=== PATIENT | female | born 1930 | race Caucasian/White ===

== ENCOUNTER → 2016-07-12 | Outpatient (CLI) | payer OTHER ==
[~2016-07-12] MED LIST: ANTIVERT/2525 MG PO; ASPIRIN81 M1 PO; ATENOLOL25 MG PO; CIPROFLOXACIN500 MG PO; CLARITIN10 MG PO; COQ1030 MG PO; DILTIAZEM180 MG PO; METFORMIN500 MG PO; MOTRIN400 MG PO; PRAVACHOL20 MG PO; PYRIDIUM200 MG PO; VITAMIN C500 M4 PO
--- NOTE | ~2016-07-12 | EKG ---
[place], [place] ELECTROCARDIOGRAM REPORT NAME: ASHKAN RODRIGUEZ UNIT #: [id number] ROOM: DOCTOR: TERESA HUBBARD MD BIRTHDATE: [birth year] DOS: 07/12/2016 TIME: 11:39 a.m. Sinus bradycardia at rate of 59. Low voltage in limb leads. Nonspecific T-wave flattening, abnormal electrocardiogram. TERESA HUBBARD MD CM:EKGRPT:ELECTROCARDIOGRAM REPORT [id number] TERESA HUBBARD MD
[2016-07-12 12:03] LABS: BASO % 0.6 % (0.0-1.0); EOS # 0.1 10*3/uL (0.0-0.4); EOS % 1.5 % (1.0-4.0); HEMATOCRIT 41.2 % (37.0-47.0); HEMOGLOBIN 13.7 g/dl (12.0-16.0); LYMPH # 1.6 10*3/uL (1.3-4.4); LYMPH % 22.8 % (27.0-41.0); MEAN CELL VOLUME 86.6 fl (81.0-99.0); MEAN CORPUSCULAR HGB 28.8 pg (27.0-31.0); MEAN CORPUSCULAR HGB CONC 33.3 g/dl (33.0-37.0); MEAN PLATELET VOLUME 11.8 fl (9.6-12.3); MONO # 0.5 10*3/uL (0.1-1.0); MONO % 7.1 % (3.0-9.0); NEUT # 4.8 10*3/uL (2.3-7.9); NEUT % 67.7 % (47.0-73.0); PLATELET COUNT AUTOMATED 211 10*3/uL (130-400); RED BLOOD COUNT 4.76 10*6/uL (4.10-5.10); RED CELL DISTRI WIDTH 12.7 % (0-14.5); WHITE BLOOD COUNT 7.2 10*3/uL (4.8-10.8)
[2016-07-12 12:18] LABS: HEMOGLOBIN A1c 6.5 % (4.8-5.6)
[2016-07-12 12:30] LABS: ALBUMIN 3.8 gm/dl (3.1-4.5); ALKALINE PHOSPHATASE 102 U/L (45-117); BILIRUBIN, DIRECT 0.2 mg/dL (0.0-0.2); BILIRUBIN, TOTAL 0.8 mg/dl (0.2-1.0); BUN 16 mg/dl (7-24); CARBON DIOXIDE 28 mmol/L (21-32); CHLORIDE 106 mmol/L (98-107); CHOLESTEROL 169 mg/dL (<200); EST GLOM FILT AFRICAN AMERICAN > 60 ml/min; GLUCOSE 120 mg/dL (65-99); HDL CHOLESTEROL 45 mg/dl (40-60); LDL CHOLESTEROL 89 mg/dL (9-159); MAGNESIUM 2.1 mg/dL (1.5-2.1); PHOSPHOROUS 3.3 mg/dL (2.5-4.9); POTASSIUM 3.8 mmol/L (3.5-5.1); SGOT/AST 16 IU/L (3-35); SGPT/ALT 20 U/L (12-78); SODIUM 139 mmol/L (136-145); TOTAL PROTEIN 6.8 gm/dL (6.4-8.2); TRIGLYCERIDES 173 mg/dl (<150); VLDL CHOLESTEROL 35 mg/dL (6-40)
[2016-07-12 13:10] LABS: FOLIC ACID > 24.00 ng/mL (>5.38)
== END | disposition home or self-care (01) ==
LOC: LAB 10:08
PROVIDERS: Internal Medicine
DX: E11.9 Type 2 diabetes mellitus without complications (principal); I10 Essential (primary) hypertension; N81.3 Complete uterovaginal prolapse; R73.01 Impaired fasting glucose; E78.2 Mixed hyperlipidemia

== ENCOUNTER 2016-07-18 03:39 | Inpatient (IN) | payer OTHER ==
[2016-07-13 11:00] VITALS: BP 110/51
[~2016-07-18] VITALS: Ht 152.4 cm; Wt 89.0 kg
[2016-07-18] VITALS (11 sets, daily range): BP systolic 110–154; BP diastolic 51–76
--- NOTE | ~2016-07-18 | WRIGHTHP ---
[place], [place] PATIENT HISTORY AND PHYSICAL EXAM NAME: ASHKAN RODRIGUEZ [facility] #: [id number] UNIT #: [id number] ROOM: DOCTOR: SWEETIE NAZARIO MD BIRTHDATE: [birth year] DOS: 07/18/2016 DATE OF PLANNED SURGERY: 07/18/2016. HISTORY OF PRESENT ILLNESS: This is an 86-year-old white female 4, para 4 who had been seen in December 2015 by me for the same complaints as above, prolapse bladder having pressure causing urinary retention. At that time, the patient's exam indicated generalized vaginal laxity and first to second degree uterine prolapse. The patient presented on 07/06/2016 stating that her uterus had come clear out per vaginal introitus. She was also having some urinary retention not surprisingly. She has seen Dr. Eddy, her primary care physician, who had referred her to Dr. Pérez who had fitted her with a pessary, but the pessary came out on several and patient wanted no further pessary attempts and wanted the situation fixed. Her exam on 07/06/2016 reveal complete uterovaginal prolapse with associated generalized vaginal laxity. We discussed the risks and benefits, the indications, the potential complications, and the alternatives of a TVH A and P repair, uterosacral plication, right sacrospinous fixation and perineoplasty. Understanding was stated and consent was signed and surgery is scheduled for 07/18/2016. PAST MEDICAL HISTORY: Reveals 4 pregnancies and 4 vaginal deliveries. She has had cataract removal. SOCIAL HISTORY: She does not smoke or drink. MEDICATIONS: She does take several medications including metformin 500 mg at dinner for diabetes, pravastatin 1 tablet daily for elevated cholesterol, atenolol 1 tablet daily for hypertension, diltiazem 180 mg for blood pressure elevation, Claritin p.r.n. for allergies and finally CoQ10 one tablet daily for blood sugar. She also takes a vitamin C and baby aspirin daily. REVIEW OF SYSTEMS: Other than what I mentioned is stable. She did have a blood clot from trauma in her left leg 5 years ago in 2009 with no sequelae and that is the reason she is taking a baby aspirin daily. The patient's family history really is noncontributory to the present situation. Both parents are and a sister who had breast cancer. PHYSICAL EXAMINATION: GENERAL: Reveals a pleasant white female in no significant distress. She is 5 feet, 4 inches, 177 pounds, BMI is 30.4. VITAL SIGNS: Blood pressure 132/66 and her oxygen saturation on room air is 99%. HEENT: Stable. NECK: Stable. CARDIAC: Stable. BREASTS: Stable. ABDOMEN: Normal. EXTREMITIES: Grossly intact. NEUROLOGIC: Grossly intact. [place], [place] PATIENT HISTORY AND PHYSICAL EXAM [facility]: [id number] UNIT #: [id number] ROOM: DOCTOR: SWEETIE NAZARIO MD BIRTHDATE: [birth year] GENITOURINARY: The external genitalia are normal, but she has significant introital laxity and again when the patient moved down the table for exam, the uterus prolapse clear out to the introitus. GENITOURINARY: The uterus, cervix and vaginal with the exception of the generalized laxity and the prolapse were otherwise normal. Bimanual exam was normal as well. RECTAL: Normal and stool Hematest is negative. ASSESSMENT: The patient with complete uterovaginal prolapse, urinary retention and failed pessary efforts at trying to keep the organs retained in a patient who now is going to be undergoing TVH A and P repair, uterosacral plication, right sacrospinous fixation and perineoplasty on 07/18/2016. I reviewed this information not only with the patient, but also with her son and I contacted her granddaughter who is a medical student here at [facility] to review all this information with understanding stated. We will certainly use early ambulation, SCD stockings, etc., but I am not going to utilized anticoagulation therapy because of the significant potential for bleeding in the operative sites within the pelvis as a result of this surgery. SWEETIE NAZARIO MD CM:HISPHYS:PATIENT HISTORY AND PHYSICAL EXAMINATION [id number] SWEETIE NAZARIO MD 07/12/16 1550 interface
--- NOTE | ~2016-07-18 | O ---
[place], [place] OPERATIVE NOTE NAME: [id number] UNIT #: [id number] ROOM: 425 DOCTOR: SWEETIE NAZARIO MD BIRTHDATE: [birth year] DOS: 07/18/2016 PREOPERATIVE DIAGNOSES: 1. Complete uterovaginal prolapse and urinary retention. 2. Significant introital laxity. POSTOPERATIVE DIAGNOSES: 1. Complete uterovaginal prolapse and urinary retention. 2. Significant introital laxity. PROCEDURE: TVH, A and P repair, uterosacral plication, right sacrospinous fixation and perineoplasty. SURGEON: Dr. Sweetie Billingsley. ANESTHESIA: General. ESTIMATED BLOOD LOSS: 100 mL. REPLACEMENTS: IV fluids, Toradol, and Ancef. COMPLICATIONS: There were no complications to the case. CONDITION: The patient's condition to recovery stable. OPERATIVE SUMMARY: The patient was taken to the operating room in supine position, general anesthesia, endotracheal intubation, lithotomy position, prepped and draped in routine manner. Catalan catheter was placed. The bladder was drained and we then were able to grasp the cervix. The uterus and cervix both of which were outside of the vagina. We injected the cervix in a circumferential manner with 1% lidocaine with epinephrine. Then, made a circumferential incision. We were careful to displace the bladder anteriorly and the rectum posteriorly. We entered the posterior cul-de-sac, created uterosacral and cardinal ligament, pedicles ligated using 0 Vicryl in transfixing manner followed by taking several pedicles with the LigaSure device prior to entering the anterior cul-de-sac. Once that was completed, we had successive pedicles bilaterally freeing up the uterus and cervix completely. The adnexa were not visualized and really not even palpable. Noting good hemostasis and stable sponge and instrument count, we plicated the uterosacral ligaments with several interrupted 2-0 Ethibond sutures. We then reperitonealized the peritoneal layer in a pursestring manner. We then excised portion of the posterior vaginal cuff followed by closure of the entire vaginal cuff with a series of interrupted 0 Vicryl [id number] sutures. We then made an incision perpendicular to the vaginal cuff up to a point just inferior to the urethral meatus and dissected the bladder and the vesicovaginal fascia free from the anterior vaginal mucosa. With several layers of 2-0 Vicryl suture, we supported the urethrovesical neck and we supported the body of the bladder, followed by removal of excess vaginal mucosa and then closure of the anterior incision with a running locking 2-0 Vicryl suture. We then made a small triangular shaped incision over the perineal area as there was not a lot [place], [place] OPERATIVE NOTE NAME: ASHKAN RODRIGUEZ UNIT #: [id number] ROOM: 425 DOCTOR: SWEETIE NAZARIO MD BIRTHDATE: [birth year] of distance between the fourchette area and the rectum. Once the skin was removed, we made an incision perpendicular to this up to the vaginal cuff posteriorly. The rectum and the rectovaginal tissue/fascia were dissected free from the vaginal mucosa. We then dissected over to the right ischial spines and placed an Ethibond suture proximal to the spine in the uterosacral ligament and affixed this to the top of the vagina bilaterally. Once that was completed, we then obliterated the rectocele with 2 layers of interrupted 2-0 Vicryl suture. We excised excess posterior vaginal mucosa and then we closed the vaginal incision from superior down toward the introitus with a running locking 2-0 Vicryl suture. We then using a charlie tight method elevated the top of the vagina very nicely with the sacrospinous fixation suture. Once that was completed, we completed the vaginal closure with a 2-0 Vicryl suture and then we reapproximated the perineal defect in 2 layers with 2-0 Vicryl as one would close a very small superficial midline episiotomy. Once that was completed, we evaluated the vagina for hemostasis. Having noted good hemostasis within all operative sites within the vagina and good elevation of the vagina itself, we then placed Premarin vaginal cream and placed iodoform packing. Once this was completed, we examined the rectum, noted to be intact, and there sacrospinous fixation suture intact as well. We then cleaned the patient off, took her out of lithotomy position, awakened, extubated her, and transferred her to recovery in satisfactory condition with stable vital signs, good hemostasis, stable sponge and instrument count, and an excellent urine output. SWEETIE NAZARIO MD CM:OPRECORD:OPERATIVE NOTE [id number] SWEETIE NAZARIO MD 07/18/16 1042 interface
--- NOTE | ~2016-07-18 | DS ---
[place], [place] DISCHARGE SUMMARY NAME: ASHKAN RODRIGUEZ [facility] #: [id number] UNIT #: [id number] ROOM: 425 DOCTOR: SWEETIE NAZARIO MD BIRTHDATE: [birth year] DOS: 07/19/2016 HOSPITAL COURSE: This absolutely delightful 86-year-old white female who was admitted on 07/18/2016 with complete uterine prolapse and associated generalized laxity, who underwent a TVH, A and P repair, uterosacral plication, right sacrospinous fixation and perineoplasty on 07/18/2016. EBL was well less than 100 mL. Postoperatively, the patient has done extremely well with good ambulation, toleration of regular diet, having resumption of bodily functions. She has had her packing and catheter removed. She has had minimal vaginal bleeding after removal of the packing. Her physical exam reveals stable vital signs, cardiac and pulmonary exam stable. Abdomen soft with good bowel sounds. Extremities and neurologic exam are all intact. IV site is stable and as I said, there is scant amount of vaginal discharge/bleeding following the packing removal. I reviewed the operative procedures with the patient and in fact, her granddaughter who is a medical student here at [employer] observed the surgery and has been able to reinforce the procedures that we had performed as we discussed during the surgery and she was able as I said to actually watch the case. I also reviewed the discharge instructions in detail. The patient will increase her diet and activity as tolerated. She will contact us should she have any complications as outlined in the discharge instructions. She will follow up in 6 weeks. She was given Percocet 5/325 one p.o. q.4-6h. on a p.r.n. basis #15, but she will mix this with a p.r.n. anti-inflammatories or Tylenol. As I said, the patient will contact the office for a 6-week followup and should she have any other issues as outlined in her discharge instructions. This delightful woman was discharged on 07/19/2016. As I said to follow up in 6 weeks. SWEETIE NAZARIO MD CM:DISCHANGELICA [id number] SWEETIE NAZARIO MD 07/19/16 1229 interface
[2016-07-18] MEDS ORDERED: CIPROFLOXACIN500 M4 PO (06:53)
[2016-07-19] VITALS: BP 147/71
[2016-07-19 08:00] VITALS: BP 166/72
== END 2016-07-19 10:15 | disposition home or self-care (01) | DRG 743 ==
LOC: SDC 03:39 → 4E 08:28 → SDC 10:15 → 4E 07-19 10:15
PROC: 0JQC0ZZ Repair Pelvic Region Subcutaneous Tissue and Fascia, Open Approach (ICD-10-PCS; principal; 2016-07-18)
PROC: 0UT97ZZ Resection of Uterus, Via Natural or Artificial Opening (ICD-10-PCS; principal; 2016-07-18)
PROC: 0UTC7ZZ Resection of Cervix, Via Natural or Artificial Opening (ICD-10-PCS; principal; 2016-07-18)
PROC: 0WQN0ZZ Repair Female Perineum, Open Approach (ICD-10-PCS; principal; 2016-07-18)
PROC: 0USG0ZZ Reposition Vagina, Open Approach (ICD-10-PCS; principal; 2016-07-18)
PROC: 0US90ZZ Reposition Uterus, Open Approach (ICD-10-PCS; principal; 2016-07-18)
DX: N81.3 Complete uterovaginal prolapse (principal); D25.9 Leiomyoma of uterus, unspecified; R33.9 Retention of urine, unspecified; N72 Inflammatory disease of cervix uteri

== ENCOUNTER → 2016-10-12 | Outpatient (CLI) | payer OTHER ==
[~2016-10-12] MED LIST changes: +CIPROFLOXACIN500 M4 PO
== END | disposition home or self-care (01) ==
LOC: US 02:49
DX: N39.3 Stress incontinence (female) (male) (principal)

== ENCOUNTER → 2017-05-10 | Outpatient (CLI) | payer OTHER ==
[2017-05-10 09:06] LABS: BILIRUBIN NEGATIVE (NEGATIVE); BLOOD TRACE-LYSED (NEGATIVE); CLARITY CLEAR (CLEAR); COLOR YELLOW (YELLOW); GLUCOSE NEGATIVE (NEGATIVE); KETONE TRACE (NEGATIVE); LEUKO ESTERASE NEGATIVE (NEGATIVE); NITRITE NEGATIVE (NEGATIVE); SPECIFIC GRAVITY 1.015 (1.005-1.030); UROBILINOGEN 0.2 E.U./dl (0.2-1.0)
[2017-05-10 10:18] LABS: BACTERIA 1+; MUCOUS 1+
== END | disposition home or self-care (01) ==
LOC: LAB 08:50
PROVIDERS: Internal Medicine
DX: N39.0 Urinary tract infection, site not specified (principal)

== ENCOUNTER 2017-07-03 11:00 | Emergency (ER) | payer OTHER ==
[~2017-07-03] VITALS: Ht 162.5 cm; Wt 77.1 kg
[2017-07-03 11:26] LABS: BASO # 0.1 10*3/uL (0.0-0.1); BASO % 0.6 % (0.0-1.0); EOS # 0.1 10*3/uL (0.0-0.4); EOS % 1.7 % (1.0-4.0); HEMOGLOBIN 13.7 g/dl (12.0-16.0); LYMPH # 1.6 10*3/uL (1.3-4.4); LYMPH % 20.8 % (27.0-41.0); MEAN CELL VOLUME 89.2 fl (81.0-99.0); MEAN CORPUSCULAR HGB 29.1 pg (27.0-31.0); MEAN CORPUSCULAR HGB CONC 32.6 g/dl (33.0-37.0); MEAN PLATELET VOLUME 11.7 fl (9.6-12.3); MONO # 0.7 10*3/uL (0.1-1.0); MONO % 8.4 % (3.0-9.0); NEUT # 5.4 10*3/uL (2.3-7.9); NEUT % 68.2 % (47.0-73.0); PLATELET COUNT AUTOMATED 204 10*3/uL (130-400); RED BLOOD COUNT 4.71 10*6/uL (4.10-5.10); RED CELL DISTRI WIDTH 12.8 % (0-14.5); WHITE BLOOD COUNT 7.9 10*3/uL (4.8-10.8)
[2017-07-03 11:43] LABS: BUN 17 mg/dl (7-24); CHLORIDE 105 mmol/L (98-107); CREATININE 0.73 mg/dL (0.55-1.02); POTASSIUM 4.5 mmol/L (3.5-5.1); SODIUM 140 mmol/L (136-145)
[2017-07-03 11:45] LABS: TROPONIN I < 0.015 ng/ml (<0.045)
== END 2017-07-03 13:30 | disposition home or self-care (01) ==
LOC: ED 11:00
PROVIDERS: Emergency Medicine
DX: R20.2 Paresthesia of skin (principal); R20.0 Anesthesia of skin; I10 Essential (primary) hypertension; E78.5 Hyperlipidemia, unspecified; E78.00 Pure hypercholesterolemia, unspecified; Z88.2 Allergy status to sulfonamides; Z79.899 Other long term (current) drug therapy; Z79.82 Long term (current) use of aspirin

== ENCOUNTER 2017-07-11 12:29 | Emergency (ER) | payer OTHER ==
[~2017-07-11] VITALS: Ht 162.5 cm; Wt 77.1 kg
[2017-07-11 12:55] LABS: BASO # 0.1 10*3/uL (0.0-0.1); BASO % 0.8 % (0.0-1.0); EOS # 0.3 10*3/uL (0.0-0.4); EOS % 4.3 % (1.0-4.0); HEMATOCRIT 41.4 % (37.0-47.0); HEMOGLOBIN 13.5 g/dl (12.0-16.0); LYMPH # 1.6 10*3/uL (1.3-4.4); LYMPH % 22.1 % (27.0-41.0); MEAN CELL VOLUME 89.4 fl (81.0-99.0); MEAN CORPUSCULAR HGB 29.2 pg (27.0-31.0); MEAN CORPUSCULAR HGB CONC 32.6 g/dl (33.0-37.0); MEAN PLATELET VOLUME 11.5 fl (9.6-12.3); MONO # 0.7 10*3/uL (0.1-1.0); NEUT # 4.5 10*3/uL (2.3-7.9); NEUT % 62.7 % (47.0-73.0); PLATELET COUNT AUTOMATED 183 10*3/uL (130-400); RED BLOOD COUNT 4.63 10*6/uL (4.10-5.10); RED CELL DISTRI WIDTH 12.8 % (0-14.5); WHITE BLOOD COUNT 7.2 10*3/uL (4.8-10.8)
[2017-07-11 13:11] LABS: ALBUMIN 3.6 gm/dl (3.1-4.5); ALKALINE PHOSPHATASE 125 U/L (45-117); BUN 18 mg/dl (7-24); CHLORIDE 100 mmol/L (98-107); POTASSIUM 3.9 mmol/L (3.5-5.1); SGOT/AST 20 IU/L (3-35); SGPT/ALT 22 U/L (12-78); SODIUM 136 mmol/L (136-145); TOTAL PROTEIN 7.2 gm/dL (6.4-8.2)
[2017-07-11] MEDS ORDERED: PREDNISONE20 M1 PO (13:39)
[2017-07-11] MEDS ORDERED: ZITHROMAX250 MG PO (13:39)
== END 2017-07-11 13:56 | disposition home or self-care (01) ==
LOC: ED 12:29
PROVIDERS: Nurse Practitioner Family
DX: J20.9 Acute bronchitis, unspecified (principal); E11.9 Type 2 diabetes mellitus without complications; J45.909 Unspecified asthma, uncomplicated; Z88.2 Allergy status to sulfonamides; Z79.899 Other long term (current) drug therapy; Z79.82 Long term (current) use of aspirin

== ENCOUNTER 2017-07-14 08:47 | Inpatient (IN) | payer OTHER ==
[~2017-07-14] VITALS: Ht 162.6 cm; Wt 76.7 kg
--- NOTE | ~2017-07-14 | CON ---
[place], [place] REPORT OF CONSULTATION NAME: ASHKAN RODRIGUEZ UNIT #: [id number] ROOM: 408 DOCTOR: TAE HAYES MD,BRYAN BIRTHDATE: [birth year] DOS: 07/14/2017 The patient was as per consultation to be seen, but discharged prior to the assessment. BRYAN STRONG MD CM:CONSTR:REPORT OF CONSULTATION [id number] 07/15/17 1547 interface
[~2017-07-14 08:47] MED LIST changes: +PREDNISONE20 M1 PO; +ZITHROMAX250 MG PO
[2017-07-14 08:48] VITALS: BP 182/83
[2017-07-14 09:14] LABS: BASO % 0.2 % (0.0-1.0); EOS % 0.2 % (1.0-4.0); HEMATOCRIT 41.2 % (37.0-47.0); HEMOGLOBIN 13.5 g/dl (12.0-16.0); LYMPH # 1.9 10*3/uL (1.3-4.4); LYMPH % 11.5 % (27.0-41.0); MEAN CELL VOLUME 86.9 fl (81.0-99.0); MEAN CORPUSCULAR HGB 28.5 pg (27.0-31.0); MEAN CORPUSCULAR HGB CONC 32.8 g/dl (33.0-37.0); MEAN PLATELET VOLUME 11.4 fl (9.6-12.3); MONO % 6.4 % (3.0-9.0); NEUT % 80.5 % (47.0-73.0); PLATELET COUNT AUTOMATED 233 10*3/uL (130-400); RED BLOOD COUNT 4.74 10*6/uL (4.10-5.10); RED CELL DISTRI WIDTH 13.1 % (0-14.5); WHITE BLOOD COUNT 16.2 10*3/uL (4.8-10.8)
[2017-07-14 09:25] LABS: ACT PARTIAL THROMBO TIME 19.9 SECONDS (20.8-31.5); INTERNATIONAL NORM RATIO 0.9 (2.0-3.5)
[2017-07-14 09:41] LABS: ALBUMIN 3.6 gm/dl (3.1-4.5); ALKALINE PHOSPHATASE 113 U/L (45-117); BUN 19 mg/dl (7-24); CHLORIDE 108 mmol/L (98-107); CREATININE 0.79 mg/dL (0.55-1.02); POTASSIUM 3.6 mmol/L (3.5-5.1); SGOT/AST 27 IU/L (3-35); SGPT/ALT 35 U/L (12-78); SODIUM 141 mmol/L (136-145); TOTAL PROTEIN 7.2 gm/dL (6.4-8.2)
[2017-07-14 09:45] LABS: TROPONIN I < 0.015 ng/ml (<0.045)
[2017-07-14 12:01] VITALS: BP 167/74
[2017-07-14 12:20] VITALS: BP 169/64
[2017-07-14 16:00] VITALS: BP 144/80
== END 2017-07-14 17:20 | disposition short-term general hospital (02) | DRG 871 ==
LOC: ED 08:47 → EDHOLD 11:37 → 4E 11:49
PROVIDERS: Emergency Medicine
DX: A41.9 Sepsis, unspecified organism (principal); J18.9 Pneumonia, unspecified organism; J93.9 Pneumothorax, unspecified; E11.9 Type 2 diabetes mellitus without complications; J45.909 Unspecified asthma, uncomplicated; E78.5 Hyperlipidemia, unspecified; I10 Essential (primary) hypertension; R79.89 Other specified abnormal findings of blood chemistry; Z88.2 Allergy status to sulfonamides; Z79.899 Other long term (current) drug therapy; Z79.82 Long term (current) use of aspirin; Z90.710 Acquired absence of both cervix and uterus; Z86.718 Personal history of other venous thrombosis and embolism; Z98.49 Cataract extraction status, unspecified eye; Z82.49 Family history of ischemic heart disease and other diseases of the circulatory system

== ENCOUNTER 2018-06-28 07:18 | Emergency (ER) | payer OTHER ==
[~2018-06-28] VITALS: Wt 76.7 kg
[2018-06-28 08:11] LABS: BASO # 0.1 10*3/uL (0.0-0.1); BASO % 0.7 % (0.0-1.0); EOS # 0.2 10*3/uL (0.0-0.4); EOS % 2.7 % (1.0-4.0); HEMATOCRIT 40.2 % (37.0-47.0); HEMOGLOBIN 12.9 g/dl (12.0-16.0); LYMPH # 1.7 10*3/uL (1.3-4.4); LYMPH % 22.5 % (27.0-41.0); MEAN CELL VOLUME 89.9 fl (81.0-99.0); MEAN CORPUSCULAR HGB 28.9 pg (27.0-31.0); MEAN CORPUSCULAR HGB CONC 32.1 g/dl (33.0-37.0); MEAN PLATELET VOLUME 11.6 fl (9.6-12.3); MONO # 0.6 10*3/uL (0.1-1.0); MONO % 8.7 % (3.0-9.0); NEUT # 4.8 10*3/uL (2.3-7.9); PLATELET COUNT AUTOMATED 194 10*3/uL (130-400); RED BLOOD COUNT 4.47 10*6/uL (4.10-5.10); RED CELL DISTRI WIDTH 13.4 % (0-14.5); WHITE BLOOD COUNT 7.4 10*3/uL (4.8-10.8)
[2018-06-28 08:28] LABS: ALBUMIN 3.3 gm/dl (3.1-4.5); ALKALINE PHOSPHATASE 94 U/L (45-117); BUN 17 mg/dl (7-24); CHLORIDE 108 mmol/L (98-107); CREATININE 0.77 mg/dL (0.55-1.02); SGOT/AST 14 IU/L (3-35); SGPT/ALT 19 U/L (12-78); SODIUM 140 mmol/L (136-145); TOTAL PROTEIN 6.3 gm/dL (6.4-8.2)
[2018-06-28] MEDS ORDERED: PEPCID20 MG PO (08:34)
[2018-06-28] MEDS ORDERED: PREDNISONE50 MG PO (08:34)
== END 2018-06-28 09:03 | disposition home or self-care (01) ==
LOC: ED 07:18
PROVIDERS: Emergency Medicine
DX: T78.3XXA Angioneurotic edema, initial encounter (principal); L25.9 Unspecified contact dermatitis, unspecified cause; E11.9 Type 2 diabetes mellitus without complications; I10 Essential (primary) hypertension; E78.5 Hyperlipidemia, unspecified; Z88.2 Allergy status to sulfonamides; Z79.899 Other long term (current) drug therapy; Z79.82 Long term (current) use of aspirin; Y92.89 Other specified places as the place of occurrence of the external cause